=== PATIENT | male | born 1985 | race Two or more races ===

== ENCOUNTER → 2022-06-23 | Emergency (ER) | payer SELFPAY ==
[~2022-06-23] VITALS: Ht 172.7 cm; Wt 85.5 kg
[2022-06-23 09:15] VITALS: BP 150/100
== END | disposition left against medical advice (07) ==
LOC: ER 08:52
DX: J02.9 Acute pharyngitis, unspecified (principal); H92.02 Otalgia, left ear; I10 Essential (primary) hypertension; Z20.822 Contact with and (suspected) exposure to COVID-19; Z53.21 Procedure and treatment not carried out due to patient leaving prior to being seen by health care provider
CPT/HCPCS: 36415; 87426